=== PATIENT | female | born 1995 | race Caucasian/White ===

== ENCOUNTER 2021-11-16 23:44 | Inpatient (IN) | payer BC, OTHER ==
[2021-11-17 01:02] LABS: Appearance,Urine Clear (Clear); Bilirubin,Urine Negative (Negative); Blood,Urine Trace (Negative); Color,Urine Yellow; Glucose,Urine (UA) Negative (Negative); Ketones,Urine 1+ (Negative); Leukocyte Esterase,Urine Negative (Negative); Nitrite,Urine Negative (Negative); PH, Urine 5.5 (5.0-8.0); Protein,Urine Trace (Negative); Specific Gravity,Urine 1.013 (1.001-1.035); Urobilinogen,Urine <2.0 mg/dL (<2.0); WBC,Urine 3 /hpf (0-5)
[2021-11-17 01:03] LABS: Mucus,Urine Occasional /hpf; RBC,Urine <1 /hpf (0-5); Squamous Epithelial Cell,Urine <1 /hpf (0-4)
[2021-11-17 01:18] LABS: Amphetamine Screen,Urine Not Detected (NotDetected); Barbiturate Screen,Urine Not Detected (NotDetected); Benzodiazepines Screen,Urine Not Detected (NotDetected); Cocaine Screen,Urine Not Detected (NotDetected); Methadone Screen, Urine Not Detected (NotDetected); Opiate Screen,Urine Not Detected (NotDetected); Oxycodone Screen, Urine Not Detected (NotDetected); Phencyclidine Screen,Urine Not Detected (NotDetected); Tricyclic Antidepressant,Urine Not Detected (NotDetected); Urn Cannabinoid Scrn Not Detected (NotDetected)
--- NOTE | 2021-11-17 01:57 | ED ---
Psych HPI - General Chief Complaint: Psychiatric Symptoms Stated Complaint: ETOH, Mental health Time Seen by Provider: 11/16/21 23:45 Source: patient, EMS Mode of arrival: EMS - History of Present Illness Initial Comments: 26-year-old female brought into the emergency department by EMS. They provide the history. They state that the patient has been depressed because her father and stepmother are getting a divorce. She was with her boyfriend on a bridge where she brought a piece of rope. Patient reports she was going to try and kill herself by jumping off the bridge. Her boyfriend had to wrestle her to the ground and EMS was called. Patient will not provide any information to me as to why she is depressed. Denies a history of it. Does not see a counselor take any medications. She denies concern for . Does admit that she was drinking tonight. Pain of the HPI is limited as the patient is not willing to provide any information. - Related Data Home Medications Medication Instructions Recorded Confirmed No Known Home Medications 11/17/21 11/17/21 Allergies Allergy/AdvReac Type Severity Reaction Status Date / Time No Known Allergies Allergy Verified 11/17/21 06:35 Review of Systems ROS Statement: Those systems with pertinent positive or pertinent negative responses have been documented in the HPI. ROS Other: All systems not noted in ROS Statement are negative. Past Medical History Past Medical History: No Reported History History of Any Multi-Drug Resistant Organisms: None Reported Past Surgical History: No Surgical Hx Reported Past Psychological History: Depression General Exam Limitations: no limitations General appearance: alert, appears intoxicated Head exam: Present: atraumatic, normocephalic, normal inspection Eye exam: Present: normal appearance, PERRL, EOMI. Absent: scleral icterus, conjunctival injection, periorbital swelling ENT exam: Present: normal exam, mucous membranes moist Neck exam: Present: normal inspection. Absent: tenderness, meningismus, lymphadenopathy Respiratory exam: Present: normal lung sounds bilaterally. Absent: respiratory distress, wheezes, rales, rhonchi, stridor Cardiovascular Exam: Present: regular rate, normal rhythm, normal heart sounds. Absent: systolic murmur, diastolic murmur, rubs, gallop, clicks GI/Abdominal exam: Present: soft, normal bowel sounds. Absent: distended, tenderness, guarding, rebound, rigid Extremities exam: Present: normal inspection, full ROM, normal capillary refill. Absent: tenderness, pedal edema, joint swelling, calf tenderness Back exam: Present: normal inspection Neurological exam: Present: alert, oriented X3, CN II-XII intact Psychiatric exam: Present: depressed, agitated, flat affect Skin exam: Present: warm, dry, intact, normal color. Absent: rash Course Vital Signs 11/16/21 11/17/21 23:44 06:55 Temperature 98.6 F 98.3 F Pulse Rate 57 L Pulse Rate [ 83 Left Sitting] Respiratory 16 15 Rate Blood Pressure 133/92 Blood Pressure 137/75 [Left Arm Sitting] O2 Sat by Pulse 98 97 Oximetry Medical Decision Making - Medical Decision Making Upon arrival patient was placed into room 12. Thorough history and physical exam was performed. BAT is 110. Patient must be monitored for 2 hours before sober. She'll be evaluated by EPS at that time. - Lab Data Lab Results 11/17/21 11/17/21 11/17/21 Range/Units 00:37 00:37 05:23 Urine Color Yellow Urine Appearance Clear (Clear) Urine pH 5.5 (5.0-8.0) Ur Specific [place] 1.013 (1.001-1.035) Urine Protein Trace H (Negative) Urine Glucose (UA) Negative (Negative) Urine Ketones 1+ H (Negative) Urine Blood Trace H (Negative) Urine Nitrite Negative (Negative) Urine Bilirubin Negative (Negative) Urine Urobilinogen <2.0 (<2.0) mg/dL Ur Leukocyte Esterase Negative (Negative) Urine RBC <1 (0-5) /hpf Urine WBC 3 (0-5) /hpf Ur Squamous Epith Cells <1 (0-4) /hpf Urine Mucus Occasional H (None) /hpf Urine HCG, Qual Not Detected (Not Detectd) Urine Opiates Screen Not Detected (NotDetected) Ur Oxycodone Screen Not Detected (NotDetected) Urine Methadone Screen Not Detected (NotDetected) Ur Propoxyphene Screen Not Detected (NotDetected) Ur Barbiturates Screen Not Detected (NotDetected) U Tricyclic Antidepress Not Detected (NotDetected) Ur Phencyclidine Scrn Not Detected (NotDetected) Ur Amphetamines Screen Not Detected (NotDetected) U Methamphetamines Scrn Not Detected (NotDetected) U Benzodiazepines Scrn Not Detected (NotDetected) Urine Cocaine Screen Not Detected (NotDetected) U Marijuana (THC) Screen Not Detected (NotDetected) Coronavirus (PCR) Not Detected (Not Detectd) Disposition Clinical Impression: Depression Disposition: ADMITTED IP TO THIS HOSP Condition: Stable Is patient prescribed a controlled substance at d/c from ED?: No
[2021-11-17] MEDS ORDERED: LORazepam 1 MG TAB PO PRN (06:38)
[2021-11-17] MEDS ORDERED: MAGNESIUM HYDROXIDE 2,400 MG/10 ML CUP PO PRN (06:38)
[2021-11-17] MEDS ORDERED: HALOPERIDOL LACTATE 5 MG/ML 1 ML VIAL IM PRN (06:38)
[2021-11-17] MEDS ORDERED: ACETAMINOPHEN TAB 325 MG TAB PO PRN (06:38)
[2021-11-17] MEDS ORDERED: MAG HYDROX/AL HYDROX/SIMETH 30 ML CUP PO PRN (06:38)
[2021-11-17] MEDS ORDERED: LORazepam 1 MG/0.5 ML VIAL IM PRN (06:41)
[2021-11-17] MEDS ORDERED: haloperidoL 5 MG TAB PO PRN (06:41)
[2021-11-17] MEDS ORDERED: MELATONIN 5 MG TABLET PO PRN (12:07)
--- NOTE | 2021-11-17 12:55 | P.HP ---
Psychiatric H&P - . H&P Date: 11/17/21 History & Physical: Allergies Allergy/AdvReac Type Severity Reaction Status Date / Time No Known Allergies Allergy Verified 11/17/21 06:35 Vital Signs Temp 98.3 F 11/17/21 06:55 Pulse 83 11/17/21 06:55 Resp 15 11/17/21 06:55 BP 137/75 11/17/21 06:55 Pulse Ox 97 11/17/21 06:55 FiO2 Intake & Output 11/16/21 11/17/21 11/17/21 18:59 06:59 18:59 Weight 60 kg 59.024 kg Laboratory Last Values Urine Color Yellow 11/17/21 00:37 Urine Appearance Clear (Clear) 11/17/21 00:37 Urine pH 5.5 (5.0-8.0) 11/17/21 00:37 Ur Specific [place] 1.013 (1.001-1.035) 11/17/21 00:37 Urine Protein Trace (Negative) H 11/17/21 00:37 Urine Glucose (UA) Negative (Negative) 11/17/21 00:37 Urine Ketones 1+ (Negative) H 11/17/21 00:37 Urine Blood Trace (Negative) H 11/17/21 00:37 Urine Nitrite Negative (Negative) 11/17/21 00:37 Urine Bilirubin Negative (Negative) 11/17/21 00:37 Urine Urobilinogen <2.0 mg/dL (<2.0) 11/17/21 00:37 Ur Leukocyte Esterase Negative (Negative) 11/17/21 00:37 Urine RBC <1 /hpf (0-5) 11/17/21 00:37 Urine WBC 3 /hpf (0-5) 11/17/21 00:37 Ur Squamous Epith Cells <1 /hpf (0-4) 11/17/21 00:37 Urine Mucus Occasional /hpf (None) H 11/17/21 00:37 Urine HCG, Qual Not Detected (Not Detectd) 11/17/21 00:37 Urine Opiates Screen Not Detected (NotDetected) 11/17/21 00:37 Ur Oxycodone Screen Not Detected (NotDetected) 11/17/21 00:37 Urine Methadone Screen Not Detected (NotDetected) 11/17/21 00:37 Ur Propoxyphene Screen Not Detected (NotDetected) 11/17/21 00:37 Ur Barbiturates Screen Not Detected (NotDetected) 11/17/21 00:37 U Tricyclic Antidepress Not Detected (NotDetected) 11/17/21 00:37 Ur Phencyclidine Scrn Not Detected (NotDetected) 11/17/21 00:37 Ur Amphetamines Screen Not Detected (NotDetected) 11/17/21 00:37 U Methamphetamines Scrn Not Detected (NotDetected) 11/17/21 00:37 U Benzodiazepines Scrn Not Detected (NotDetected) 11/17/21 00:37 Urine Cocaine Screen Not Detected (NotDetected) 11/17/21 00:37 U Marijuana (THC) Screen Not Detected (NotDetected) 11/17/21 00:37 Coronavirus (PCR) Not Detected (Not Detectd) 11/17/21 05:23 11/17/21 12:50 IDENTIFYING DATA: Patient is a 26-year-old female currently lives with her father in a house and works in a store, she is attending college. Unmarried. HPI: Patient presented to the hospital yesterday a petition by field crop technical officer. According to petition patient was on a bridge and had a rope with her and was attempting to herself or jump off the bridge. The patient also stated that patient's boyfriend held her down and she was taken to the ER via EMS. According to petition an EGD note, patient had related that a big stressor for her was her father and mother are getting a divorce. Patient was admitted involuntary to the mental health unit. Her blood alcohol level on admission was 110 and also UDS was negative. Patient was fairly guarded and concrete/evasive about what had occurred. She states that "a lot of it involves alcohol" and minimize her alcohol use. She states that she doesn't drink much and was drinking about a half a pint of liquor that day. She states that she did attempt suicide however has not done this previously. She claims that she was going to hang herself however change her mind. She states that she mainly has been having stressor about transferring to a different college further away. She states that she has been "trying to find a place there but it's been difficult". She is denying having stressor of her mother and father getting a divorce. She states that "it doesn't affect me that much". She is endorsing depression for several weeks now. She also claims that she does have anxiety. States that her sleep and appetite are fair.. Patient denies any suicidal or homicidal ideations intent or plan. At this time patient denies any auditory or visual hallucinations. Patient denies any flight of ideas racing thoughts and increased in goal directed behavior. Patient admits to using alcohol occasionally and denies any other recreational drug use. Denies any cigarette use. PAST PSYCHIATRIC HISTORY: Patient states that she has no psychiatric history. Patient denies being on any psychiatric medications. Patient denies any previous psychiatric hospitalizations. Patient denies any psychiatric outpatient follow-up. Patient denies any history of suicide attempts in the past. PMH:denies ALLERGIES: as per EMR CHEMICAL DEPENDENCY HISTORY: as per HPI FAMILY PSYCHIATRIC/SUBSTANCE USE HISTORY: Claims that her mother has bipolar disorder, father has anxiety. She also states that her brother has ADHD. SOCIAL HISTORY: Patient was born and raised in [place]. She states that she completed high school. She claims that she is currently enrolled in college however we'll be transferring to [employer]. She states that she is enrolled in physical therapy program. She is unmarried, has no kids. She currently lives with her dad in a house. She works a store. Denies any legal history. MENTAL STATUS EXAM: General Appearance: Patient appears to be short in stature, stated age is alert, difficult to engage with, evasive/guarded. Patient appears to have fair hygiene and grooming. Behavior: Patient is seated without any agitated behavior. Evasive. Guarded. Speech: Patient's speech is fluent and nonpressured. [place]. Mood/Affect: Patient reports their mood is depressed anxious, affect is congruent and constricted. Suicidality/Homicidality: Patient denies having any homicidal ideation intent or plan. Denies any suicidal ideations intent or plan Perceptions: Patient denies any visual hallucinations and denies any auditory hallucinations Though content/process: Poverty of content, concrete. Evasive. Logical. Minimizing her symptoms. Memory and concentration: AOX3, grossly intact for the purposes of this session. Can spell "WORLD" backwards Judgment and insight: poor STRENGTHS/WEAKNESSES: strength is that patient is resilient. Weakness is that patient has poor judgment and is impulsive INTELLECT: average IMPRESSIONS: Major depressive disorder, without psychotic features Anxiety disorder unspecified Alcohol abuse PLAN: -Patient is admitted under voluntary status to MHU for stabilization of psychiatric symptoms and safety. Patient has signed adult voluntary form and med ication consent and is placed in patient's chart. -Medications : Will start patient on Prozac 20 mg daily for mood/anxiety. Melatonin daily at bedtime when necessary for insomnia. -Ativan and Haldol PRN for agitation/aggression -Patient was informed of the risks, benefits and side effects of the medication and patient verbally consented to taking the medications. Patient signed med consent form and was placed in chart. -Internal Medicine consult to perform medical evaluation and physical. -NRT - not needed as patient does not smoke -SW on board for discharge planning. Encourage patient to participate in groups to work on coping skills.
[2021-11-17] MEDS: FLUoxetine HCL 20 MG CAP PO SCH (13:39)
[2021-11-18] MEDS: FLUoxetine HCL 20 MG CAP PO SCH (09:08)
[2021-11-18 11:40] LABS: ALT 16 U/L (4-34); African American GFR (CKD) >90 (>60 ml/min/1.73 sqM); Albumin 4.7 g/dL (3.5-5.0); Anion Gap 10 mmol/L; Blood Urea Nitrogen 16 mg/dL (7-17); Calcium 9.5 mg/dL (8.4-10.2); Carbon Dioxide 21 mmol/L (22-30); Chloride 108 mmol/L (98-107); Glucose 69 mg/dL (74-99); Non-African American GFR(CKD) >90 (>60 ml/min/1.73 sqM); Sodium 139 mmol/L (137-145); Total Bilirubin 0.7 mg/dL (0.2-1.3); Total Protein 7.4 g/dL (6.3-8.2)
[2021-11-18 11:45] LABS: AST 27 U/L (14-36); Alkaline Phosphatase 46 U/L (38-126); Potassium 4.2 mmol/L (3.5-5.1)
--- NOTE | 2021-11-18 12:04 | P.PN ---
Progress Note - Text Progress Note Date: 11/18/21 Interval History: Patient was seen participating group today and was directable and agreeable to speak with screenplay writer in the office. Patient continues to be nonchalant and guarded/evasive. She continues to minimize what had occurred prior to her coming in the hospital. She states that she has not thought much about the events that transpired. She claims that she feels "the same" as yesterday. Mood and anxiety continue to remain unchanged. We spoke about increasing her Prozac tomorrow to 40 mg she was agreeable to this. She states that she did speak with her fianc over the phone who is supportive of her. She was fairly focused on discharged today. In that she is going to groups. Claims that she slept fairly last night. At this time patient denies any suicidal or homical ideations, intent or plan. Patient denies any auditory, visual hallucinations and denies any paranoia or delusions. Patient denies any side effects from the medications and has been compliant with meds. Mental Status Exam: General Appearance: Patient appears to be short in stature, stated age is alert, evasive/guarded. Patient appears to have fair hygiene and grooming. Behavior: Patient is seated without any agitated behavior. Evasive. Guarded. Speech: Patient's speech is fluent and nonpressured. [place]. Mood/Affect: Patient reports their mood is depressed anxious, improving mildly, affect is congruent and constricted. Suicidality/Homicidality: Patient denies having any homicidal ideation intent or plan. Denies any suicidal ideations intent or plan Perceptions: Patient denies any visual hallucinations and denies any auditory hallucinations Though content/process: Poverty of content, concrete. Logical. Minimizing her symptoms. Memory and concentration: AOX3, grossly intact for the purposes of this session Judgment and insight: poor, improving mildly IMPRESSIONS: Major depressive disorder, without psychotic features Anxiety disorder unspecified Alcohol abuse Plan: -Patient continues to meet criteria for inpatient psychiatric admission for symptom stabilization and safety. Patient has signed adult voluntary form and medication consent and was placed in patient's chart. -Medications: Increase Prozac to 40 mg daily for mood/anxiety. Melatonin 5 mg daily at bedtime when necessary for insomnia. -When necessary Ativan and Haldol for agitation/aggression. -NRT - not needed as patient does not smoke. -SW on board for discharge planning. Encouraged the patient to participate in milieu.
[2021-11-18 12:13] LABS: Basophils # (A) 0.1 k/uL (0-0.2); Basophils % (A) 1 %; Eosinophils # (A) 0.1 k/uL (0-0.7); Eosinophils % (A) 1 %; HCT 48.7 % (34.0-46.0); HGB 16.1 gm/dL (11.4-16.0); Lymphocytes # (A) 2.4 k/uL (1.0-4.8); Lymphocytes % (A) 28 %; MCH 32.6 pg (25.0-35.0); MCV 98.9 fL (80.0-100.0); Mean Platelet Volume 10.3; Monocytes # (A) 0.6 k/uL (0-1.0); Monocytes % (A) 7 %; Neutrophils # (A) 5.3 k/uL (1.3-7.7); Neutrophils % (A) 62 %; Platelet Count 133 k/uL (150-450); RBC 4.92 m/uL (3.80-5.40); RDW 11.8 % (11.5-15.5); WBC 8.7 k/uL (3.8-10.6)
[2021-11-18 18:29] LABS: Estimated Average Glucose UNC
--- NOTE | 2021-11-19 01:34 | P.MDCNMH ---
History of Present Illness H&P Date: 11/18/21 Chief Complaint: Medical evaluation 26-year-old female no significant past medical history Patient reports long history of anxiety and depressed mood however she has not seen a doctor a counselor for that she's not on any medications. She is going through social stressors and decided to commit suicide by hanging herself with a rope her boyfriend notified EMS and brought to the hospital for evaluation he feels fine now denies any suicidal or homicidal ideation denies any hallucinations. She regrets doing that and hoping that she can open up and seek help with her depression and anxiety. Otherwise she denies any medical concerns denies any fevers chills coughing denies any upper respiratory infection symptoms abdominal pain nausea vomiting or GI bleeds or diarrhea Patient denies any active smoking or illicit drugs she denies any regular heavy alcohol consumption however that night she was drinking alcohol and she believes that she was not thinking straight Review of Systems Pertinent positives as noted in HPI. All other systems were reviewed and are negative Past Medical History Past Medical History: No Reported History History of Any Multi-Drug Resistant Organisms: None Reported Past Surgical History: No Surgical Hx Reported Past Psychological History: Depression - Past Family History Family Family Medical History: No Reported History Medications and Allergies Home Medications Medication Instructions Recorded Confirmed Type No Known Home Medications 11/17/21 11/17/21 History Allergies Allergy/AdvReac Type Severity Reaction Status Date / Time No Known Allergies Allergy Verified 11/17/21 06:35 Physical Exam Vitals: Vital Signs Temp Pulse Resp BP 11/18/21 06:58 98.3 F 87 14 126/62 Constitutional: No acute distress, conversant, pleasant Eyes: Anicteric sclerae, moist conjunctiva, Pupils equal round reactive to light ENMT: NC/AT Oropharynx clear, no erythema, or exudates Neck: Supple, FROM, no masses, or JVD No carotid bruits No thyromegaly Lungs: Clear to auscultation Clear to percussion Normal respiratory effort, no accessory muscle use Cardiovascular: Heart regular in rate and rhythm, No murmurs, gallops, or rubs No peripheral edema Abdominal: Soft Nontender, no guarding, rebound or rigidity Abdomen moving with respiration Normoactive bowel sounds No hepatomegaly, No splenomegaly No palpable mass No abdominal wall hernia noted Skin: Normal temperature, tone, texture, turgor No induration No subcutaneous nodules No rash, lesions No ulcers Extremities: No digital cyanosis No clubbing Pedal pulses intact and symmetrical Radial pulses intact and symmetrical No calf tenderness Psychiatric: Alert and oriented to person, place and time Appropriate affect fair judgement Neuro Muscles Strength 5/5 in all 4 extremities Sensation to light touch grossly present throughout Cranial nerves II-XII grossly intact No focal sensory deficits Lymphatics: no palpable cervical or supraclavicular , or inguinal lymph nodes Cranial Nerve Examination - Cranial Nerves Cranial Nerve II- Optic: Intact Cranial Nerve III- Oculomotor: Intact Cranial Nerve IV- Trochlear: Intact Cranial Nerve V- Trigeminal: Intact Cranial Nerve - Abducens: Intact Cranial Nerve VII- Facial: Intact Cranial Nerve VIII- Auditory: Intact Cranial Nerve IX- Glossopharyngeal: Intact Cranial Nerve X- Vagus: Intact Cranial Nerve XI- Accessory: Intact Cranial Nerve XII- Hypoglossal: Intact Results CBC & Chem 7: 11/18/21 10:40 11/18/21 10:40 Labs: Abnormal Lab Results - Last 24 Hours (Table) 11/18/21 11/18/21 Range/Units 10:40 10:40 Hgb 16.1 H (11.4-16.0) gm/dL Hct 48.7 H (34.0-46.0) % Plt Count 133 L (150-450) k/uL Chloride 108 H (98-107) mmol/L Carbon Dioxide 21 L (22-30) mmol/L Glucose 69 L (74-99) mg/dL Assessment and Plan Assessment: Depressed mood Suicidal ideation Management per psych Blood work reviewed Stable from medical standpoint Thank you for allowing us to participate in the care of this patient. We will follow peripherally. Do not hesitate to contact us with questions. Someone can be reached from the [facility] hospitalist group at all hours of the day at [phone].
[2021-11-19] MEDS: FLUoxetine HCL 20 MG CAP PO SCH (09:35)
--- NOTE | 2021-11-19 10:24 | P.PN ---
Progress Note - Text Progress Note Date: 11/19/21 Interval History: Patient was seen participating in group today and was directable and agreeable to speak with insurance underwriter in the office. Patient continues to be nonchalant and guarded/evasive over this is improving mildly. She claims that her fianc came to visit her yesterday on the unit and there were able to catch up however she continues to be fairly guarded about what they talked about. She states that she is feeling more optimistic and feels that her anxiety and mood have been gradually improving since being on medication. She states that she feels she may be ready for discharge tomorrow. She claims that she did not sleep well last night due to other patients on the unit and noise however states that she does not want to take the melatonin. She claimed that she is going to groups however again seems to be fairly concrete with her answers about what she is learning and fairly superficial. At this time patient denies any suicidal or homical ideations, intent or plan. Patient denies any auditory, visual hallucinations and denies any paranoia or delusions. Patient denies any side effects from the medications and has been compliant with meds. Mental Status Exam: General Appearance: Patient appears to be short in stature, stated age is alert, less guarded today. Patient appears to have fair hygiene and grooming. Behavior: Patient is seated without any agitated behavior. less Guarded Speech: Patient's speech is fluent and nonpressured. [place] Mood/Affect: Patient reports their mood is improving mildly, affect is congruent and constricted. Suicidality/Homicidality: Patient denies having any homicidal ideation intent or plan. Denies any suicidal ideations intent or plan Perceptions: Patient denies any visual hallucinations and denies any auditory hallucinations Though content/process: Poverty of content, concrete. Logical Memory and concentration: AOX3, grossly intact for the purposes of this session Judgment and insight: poor, improving mildly IMPRESSIONS: Major depressive disorder, without psychotic features Anxiety disorder unspecified Alcohol abuse Plan: -Patient continues to meet criteria for inpatient psychiatric admission for symptom stabilization and safety. Patient has signed adult voluntary form and medication consent and was placed in patient's chart. -Medications: continue with Prozac 40 mg daily for mood/anxiety. Melatonin 5 mg daily at bedtime when necessary for insomnia -When necessary Ativan and Haldol for agitation/aggression. -NRT - not needed as patient does not smoke. -SW on board for discharge planning. Encouraged the patient to participate in milieu. likely discharge tomorrow back home.
[2021-11-20 07:05] VITALS: BP 111/59; PULSE 67; RESP 16; TEMP 98.2
[2021-11-20] MEDS: FLUoxetine HCL 20 MG CAP PO SCH (08:57)
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
== END 2021-11-20 10:41 | disposition home or self-care (01) | DRG 881 ==
LOC: EC 23:44 → 3MHU 11-17 06:17
PROVIDERS: ADMIT Psychiatry & Neurology Psychiatry; ATTEND Psychiatry & Neurology Psychiatry
DX: F32.9 Major depressive disorder, single episode, unspecified (principal); R45.851 Suicidal ideations; Z20.822 Contact with and (suspected) exposure to COVID-19; F10.10 Alcohol abuse, uncomplicated; F41.9 Anxiety disorder, unspecified; G47.00 Insomnia, unspecified; Z81.8 Family history of other mental and behavioral disorders
CPT/HCPCS: 80053; 80306; 81001; 81025; 82075; 83036; 84443; 85025; 87635; 99285

== ENCOUNTER 2023-03-09 | Inpatient (IN) | payer BC, MEDICAID, OTHER ==
[2023-03-09] MEDS ORDERED: PENICILLIN G POTASSIUM 5,000,000 UNIT in DEXTROSE 5% IN WATER 100 ML IVPB STA ×2 (00:47)
[2023-03-09] MEDS ORDERED: TRANEXAMIC 1,000 MG/100ML-NACL 1,000 MG in EMPTY BAG 1 BAG IV PRN (00:47)
[2023-03-09] MEDS ORDERED: LIDOCAINE 0.5% (PF) 5 MG/ML (50 ML SDV) SQ PRN (00:47)
[2023-03-09] MEDS ORDERED: TERBUTALINE 1 MG/ML VIAL SQ PRN (00:47)
[2023-03-09] MEDS ORDERED: miSOPROStoL 200 MCG TAB PO PRN (00:47)
[2023-03-09] MEDS ORDERED: METHYLERGONOVINE 0.2 MG/ML 1 ML AMP IM PRN (00:47)
[2023-03-09] MEDS ORDERED: CARBOPROST TROMETHAMINE 250 MCG/ML 1 ML AMP IM PRN (00:47)
[2023-03-09] MEDS ORDERED: OXYTOCIN 10 UNIT/ML 1 ML VIAL IM PRN (00:47)
[2023-03-09] MEDS: LACTATED RINGERS 1,000 ML IV SCH ×2 (01:34→10:07)
[2023-03-09 01:46] LABS: Basophils % (A) 0 %; Eosinophils # (A) 0.2 k/uL (0-0.7); Eosinophils % (A) 1 %; HCT 37.5 % (34.0-46.0); HGB 12.3 gm/dL (11.4-16.0); Lymphocytes # (A) 2.9 k/uL (1.0-4.8); Lymphocytes % (A) 16 %; MCH 29.4 pg (25.0-35.0); MCHC 32.9 g/dL (31.0-37.0); MCV 89.3 fL (80.0-100.0); Mean Platelet Volume 9.8; Monocytes # (A) 0.7 k/uL (0-1.0); Monocytes % (A) 4 %; Neutrophils # (A) 14.1 k/uL (1.3-7.7); Neutrophils % (A) 78 %; Platelet Count 292 k/uL (150-450); RBC 4.19 m/uL (3.80-5.40); RDW 12.8 % (11.5-15.5)
[2023-03-09] MEDS: PENICILLIN G POTASSIUM 2,500,000 UNIT in DEXTROSE 5% IN WATER 100 ML IVPB SCH ×4 (05:35→10:07)
[2023-03-09] MEDS ORDERED: OXYTOCIN 30 UNITS/500 ML NS 30 UNIT in SALINE 1 500ML.BAG IV SCH (06:00)
[2023-03-09] MEDS ORDERED: NALBUPHINE 10 MG/ML (10 ML MDV) IV PRN (06:41)
[2023-03-09] MEDS ORDERED: fentaNYL (PF) 50 MCG/ML 5 ML AMP ONE (08:58)
[2023-03-09] MEDS ORDERED: ROPIVACAINE 5 MG/ML 30 ML VIAL ONE (08:58)
[2023-03-09] MEDS ORDERED: SODIUM CHLORIDE 0.9% 250 ML BAG ONE (08:58)
[2023-03-09] MEDS: AMPICILLIN 1,000 MG in SODIUM CHLORIDE 0.9% 50 ML IVPB SCH ×2 (10:13→15:28)
--- NOTE | 2023-03-09 12:24 | P.HPOB ---
History of Present Illness H&P Date: 03/09/23 Chief Complaint: IUP at 36-4/7 weeks, premature rupture of membranes This is a 27-year-old 1 para 0 at 36-4/7 weeks that presented to labor and delivery around midnight with complaints of spontaneous rupture of membranes. Patient was deemed to be grossly ruptured. Patient was admitted. Pitocin augmentation of labor was begun around 5 AM. Patient is noted to be uncomfortable this morning and 4-5 cm. Patient is requesting epidural. Patient has been receiving routine care with myself. On blood work shows the patient's blood type of B+, rubella status nonimmune, B surface antigen negative, HIV negative, RPR is nonreactive, group beta strep culture is unknown. Review of Systems Constitutional: Denies chills, Denies fatigue, Denies fever Ears, nose, mouth and throat: Denies headache Cardiovascular: Reports leg edema Respiratory: Denies dyspnea Gastrointestinal: Denies constipation, Denies diarrhea, Denies nausea, Denies vomiting Genitourinary: Reports Past Medical History Past Medical History: No Reported History History of Any Multi-Drug Resistant Organisms: None Reported Past Surgical History: No Surgical Hx Reported Past Anesthesia/Blood Transfusion Reactions: No Reported Reaction Past Psychological History: Depression Smoking Status: Never smoker Past Alcohol Use History: None Reported, Occasional Past Drug Use History: None Reported - Past Family History Father Family Medical History: Hypertension Additional Family Medical History / Comment(s): Alcoholism Family Family Medical History: No Reported History Medications and Allergies Home Medications Medication Instructions Recorded Confirmed Type Vit No.179/Iron/Folic 1 tab PO DAILY 03/09/23 03/09/23 History [ Tablet] Allergies Allergy/AdvReac Type Severity Reaction Status Date / Time No Known Allergies Allergy Verified 03/09/23 00:13 Exam Osteopathic Statement: *. No significant issues noted on an osteopathic structural exam other than those noted in the History and Physical/Consult. Vital Signs Temp Pulse Resp BP Pulse Ox 03/09/23 00:56 97.7 F 78 16 138/78 96 Intake and Output 03/08/23 03/09/23 03/09/23 22:59 06:59 14:59 Other: # Voids 2 # Bowel Movements 1 Weight 86.183 kg Targeted physical exam is performed in this date and montessori teacher a well-nourished well-developed female in no acute distress, breathing is nonlabored, heart has regular rate and rhythm, abdomen is gravid and appropriate for gestational age, on cervical exam she is 4-5/90/-2 with bulging bag of water appreciated, amniotomy is performed in clear fluid is obtained. heart tones noted to be category 1. Contractions are not graphing well she is lying on her side. Results Result Diagrams: 03/09/23 01:29 Abnormal Lab Results - Last 24 Hours (Table) 03/09/23 Range/Units 01:29 WBC 18.0 H (3.8-10.6) k/uL Neutrophils # 14.1 H (1.3-7.7) k/uL Assessment and Plan (1) 36 to 37 weeks gestation of Current Visit: Yes Status: Acute Code(s): QWA4910 - SNOMED Code(s): 099107499 (2) PROM (premature rupture of membranes) Current Visit: Yes Status: Acute Code(s): O42.90 - KAELYN ROM, 7TH0 BETW RUPT & ONST LABR, UNSP WEEKS OF GEST SNOMED Code(s): 40669366 Plan: Hasmukh she'll at 36-4/7 weeks presents with premature rupture of membranes. Pitocin augmentation of labor was begun around 5 AM, patient is noted late uncomfortable contractions. Options for analgesia are discussed. Patient does elect epidural at some point. Anesthesia will be notified. Continue current plan.
--- NOTE | 2023-03-09 12:26 | P.PROBDLV ---
Vaginal Delivery Note - . Vaginal Delivery Note: 37-year-old 1 para 0 at 36-4/7 weeks presented with premature rupture of membranes around midnight to labor and delivery. Patient was deemed to be grossly ruptured. Patient was admitted and Pitocin augmentation of labor was begun early this morning. Patient on exam this a.m. had a bulging bag of water therefore amniotomy was performed and clear fluid was obtained. Patient was noted be 5+ centimeters at the time. Patient requested epidural. Epidural was placed without difficulty. Patient made steady progress were complete. Once patient was completely dilated she began pushing and with excellent maternal effort had a normal spent taste vaginal delivery of a viable female infant at 1158, weight of 5 lbs. 2 oz., Apgars of 9 and 9 at one and 5 minutes respectively. After two-minute delay the umbilical cords doubly clamped and cut. Spontaneous cry was noted at . Placenta was delivered spontaneously intact with three-vessel cord being noted. On inspection the patient's vaginal vault a first-degree vaginal laceration was appreciated. This was repaired in usual fashion with 3-0 Rapide. In addition a clitoral laceration was appreciated. This was repaired with 4-0 chromic in a running locked fashion. Hemostasis was appreciated after repair was done. The bladder was drained after delivery of the placenta for approximately 400 mL of clear yellow urine. Uterus noted be firm and below the umbilicus. All counts were correct 2 at the delivery. Patient and tolerated delivery well and are resting complete.
[2023-03-09] MEDS ORDERED: MEASLES-MUMPS-RUBELLA VACC/PF 12,500 UNIT/0.5 ML VIAL SQ ONE (13:43)
[2023-03-10] MEDS ORDERED: LANOLIN CREAM 5 GM TUBE TOPICAL PRN (08:01)
[2023-03-10] MEDS ORDERED: IBUPROFEN 600 MG TAB PO PRN (08:01)
[2023-03-10] MEDS ORDERED: SIMETHICONE 80 MG CHEWABLE PO PRN (08:01)
[2023-03-10] MEDS ORDERED: diphenhydrAMINE 50 MG CAP PO PRN (08:01)
[2023-03-10] MEDS ORDERED: ACETAMINOPHEN TAB 325 MG TAB PO PRN (08:01)
[2023-03-10] MEDS ORDERED: BENZOCAINE/MENTHOL SPRAY 1 GM/SPRAY AEROSOL TOPICAL PRN (08:01)
[2023-03-10] MEDS ORDERED: HYDROCORTISONE 2.5% RECTAL CREAM 30 GM TUBE RECTAL PRN (08:01)
[2023-03-10] MEDS ORDERED: ZOLPIDEM 5 MG TAB PO PRN (08:01)
[2023-03-10] MEDS ORDERED: diphenhydrAMINE 25 MG CAP PO PRN (08:01)
[2023-03-10] MEDS ORDERED: diphenhydrAMINE 50 MG/ML 1 ML VIAL IVP PRN ×2 (08:01)
[2023-03-10 08:27] VITALS: RESP 16
--- NOTE | 2023-03-10 10:58 | P.PNOBGVD ---
Subjective - Subjective Principal diagnosis: day #1, normal spontaneous vaginal delivery Interval history: Patient is doing well . She is ambulating and voiding without difficulty. She is tolerating regular diet. She denies concerns. She is bottle feeding Patient reports: Reports appetite normal, Reports voiding normally, Reports pain well controlled, Reports ambulating normally [place]: doing well, bottle feeding Objective - Latest Vital Signs Latest vital signs: Vital Signs Temp Pulse Resp BP Pulse Ox 03/10/23 08:00 97.9 F 66 16 142/79 03/09/23 23:46 99.5 F 91 18 102/53 03/09/23 20:00 99.5 F 81 14 122/73 98 03/09/23 15:17 98.2 F 70 16 116/57 100 03/09/23 14:21 70 16 116/57 100 03/09/23 13:51 81 16 109/69 99 03/09/23 13:20 80 16 123/64 98 03/09/23 13:02 84 16 120/57 98 03/09/23 12:47 65 16 111/62 98 03/09/23 12:33 73 16 128/69 98 03/09/23 12:21 98.0 F 73 16 104/56 97 Intake and Output 03/09/23 03/10/23 03/10/23 22:59 06:59 14:59 Intake Total 400 Balance 400 Intake: Oral 400 Other: # Voids 2 - Exam Extremities: Present: normal, edema Abdomen: Present: normal appearance Uterus: Present: normal, firm Assessment and Plan (1) 36 to 37 weeks gestation of Current Visit: Yes Status: Acute Code(s): [id number] - SNOMED Code(s): 344252773 (2) PROM (premature rupture of membranes) Current Visit: Yes Status: Acute Code(s): O42.90 - KAELYN ROM, 7TH0 BETW RUPT & ONST LABR, UNSP WEEKS OF GEST SNOMED Code(s): 72692485 Plan: 27 her old G1 now P1 status post normal spontaneous vaginal delivery. Patient is doing well . If in early gestational age 36 weeks pediatrics is recommending an additional night for observation of infant. We will anticipate discharge home tomorrow
[2023-03-10] MEDS ORDERED: SENNOSIDES-DOCUSATE SODIUM 1 EACH TAB PO SCH (20:00)
[2023-03-11 08:43] VITALS: BP 119/79; PULSE 76; TEMP 97.9
--- NOTE | 2023-03-11 10:02 | P.DS ---
Providers Date of admission: 03/09/23 00:47 Expected date of discharge: 03/11/23 Attending physician: Olga Virgen Primary care physician: Stated None - Discharge Diagnosis(es) (1) 36 to 37 weeks gestation of Current Visit: Yes Status: Acute (2) PROM (premature rupture of membranes) Current Visit: Yes Status: Acute (3) Normal vaginal delivery Current Visit: Yes Status: Acute (4) Obstetric vaginal laceration Current Visit: Yes Status: Acute Hospital Course: This is a 27-year-old 1 now para 1 that presented to labor and delivery at 36-4/7 weeks with premature rupture of membranes. Patient was admitted to labor and delivery and antibiotic prophylaxis was given given her early gestational age. Patient had been receiving routine care which has been essentially uncomplicated. For full details on this patient please see dictated history and physical. Patient was admitted and expectant management was ordered, patient made minimal change therefore Pitocin augmentation of labor was begun in the early a.m. Patient made good progress through labor eventually becoming uncomfortable requesting epidural placement. Patient made good progress toward complete. Once patient was noted to be completely dilated she began pushing and had a normal spontaneous vaginal delivery of a viable female , weight of 5 lbs. 2 oz. Patient did sustain a first-degree vaginal laceration and a clitoral laceration was repaired in the usual fashion patient's course has been uneventful. On this day #2 she is ambulating and voiding without difficulty. She is tolerating a regular diet without nausea or vomiting. She states her pain is well-controlled. She is ready for discharge home. Patient Condition at Discharge: Good Plan - Discharge Summary New Discharge Prescriptions: No Action Vit No.179/Iron/Folic [ Tablet] 1 tab PO DAILY Discharge Medication List Vit No.179/Iron/Folic [ Tablet] 1 tab PO DAILY 03/09/23 [History] Follow up Appointment(s)/Referral(s): Olga Virgen DO [Doctor of Osteopathic Medicine] - 6 Weeks Patient Instructions/Handouts: Vaginal Delivery (DC), Vaginal Delivery (GEN) Activity/Diet/Wound Care/Special Instructions: No tub baths or intercourse until 6 weeks . [id number] ibuprofen as needed for pain. Discharge Disposition: HOME SELF-CARE
== END 2023-03-11 12:00 | disposition home or self-care (01) | DRG 560 ==
LOC: FBPOP → 4FBP 00:47
PROVIDERS: ADMIT Obstetrics & Gynecology; ATTEND Obstetrics & Gynecology Obstetrics
PROC: 10E0XZZ Delivery of Products of Conception, External Approach (ICD-10-PCS; principal; 2023-03-09)
PROC: 0HQ9XZZ Repair Perineum Skin, External Approach (ICD-10-PCS; 2023-03-09)
PROC: 0UQJXZZ Repair Clitoris, External Approach (ICD-10-PCS; 2023-03-09)
PROC: 10907ZC Drainage of Amniotic Fluid, Therapeutic from Products of Conception, Via Natural or Artificial Opening (ICD-10-PCS; 2023-03-09)
DX: O42.92 Full-term premature rupture of membranes, unspecified as to length of time between rupture and onset of labor (principal); Z37.0 Single live birth; O70.0 First degree perineal laceration during delivery; Z3A.37 37 weeks gestation of pregnancy
CPT/HCPCS: 59025; 84112; 85025; 86850; 86900; 86901; 88307; 90707; 99213